=== PATIENT | female | born 1970 | race American Indian/Alaskan Native ===

== ENCOUNTER 2017-08-20 14:35 | Emergency (ER) | payer MEDICAID ==
[2017-08-20 15:37] VITALS: BP 131/57
[2017-08-20 16:15] LABS: Bacteria,Urine 1+ /HPF (Negative); Bilirubin,Urine NEG (Negative); Blood,Urine LG (Negative); Color,Urine Yellow (Yellow); Mucus,Urine FEW /HPF; Nitrite,Urine NEG (Negative); Protein,Urine <15 mg/dL mg/dL (Negative); Urobilinogen,Urine < 2.0 mg/dL (<2.0)
== END 2017-08-21 07:11 | disposition left against medical advice (07) ==
LOC: ED 14:35
DX: N93.9 Abnormal uterine and vaginal bleeding, unspecified (principal); Z53.21 Procedure and treatment not carried out due to patient leaving prior to being seen by health care provider
CPT/HCPCS: 81001

== ENCOUNTER 2017-08-21 14:45 | Emergency (ER) | payer MEDICAID ==
[2017-08-21 17:24] LABS: Bilirubin,Urine NEG (Negative); Blood,Urine LG (Negative); Color,Urine Yellow (Yellow); Mucus,Urine 1+ /HPF; Nitrite,Urine NEG (Negative); Protein,Urine <15 mg/dL mg/dL (Negative); Urobilinogen,Urine < 2.0 mg/dL (<2.0)
[2017-08-21 17:28] LABS: HCG Qualitative,Urine Positive (Negative)
--- NOTE | 2017-08-21 19:41 | Ultrasound Report ---
FINAL REPORT PROCEDURE: US OB < = 14 WEEKS FETUS TECHNIQUE: Real-time transabdominal sonography of the uterus, placenta, amniotic fluid, adnexa, and fetus was performed with image documentation. Measurements were obtained to determine age/size. M-mode Doppler was used to document heartbeat. CPT 33851 HISTORY: + hcg, vag bleeding COMPARISON: No prior studies are available for comparison. FINDINGS: CRL: No embryonic pole Yolk Sac: Not seen Embryonic Cardiac Activity: No heart activity Gestational Sac: 3 millimeters consistent with 5 weeks 0 days Amniotic fluid: Normal. Cervix: Normal. Right Ovary: Surgically absent Left Ovary: 3.6 x 3.7 centimeters with normal flow. Indeterminate 1.1 centimeter cyst left ovary. 1.2 centimeter echogenic solid mass, indeterminate. Estimated delivery date: 04/23/2018 Uterus and adnexa: 7 centimeter uterus IMPRESSION: Empty gestational sac 5 weeks 0 days age. No embryonic pole or heart tones seen. Short-term followup is advised.
--- NOTE | 2017-08-21 19:45 | Ultrasound Report ---
FINAL REPORT PROCEDURE: US OB TRANSVAGINAL TECHNIQUE: Real-time transvaginal sonography of the uterus, placenta, amniotic fluid, adnexa, and fetus was performed with image documentation. Measurements were obtained to determine age/size. M-mode Doppler was used to document heartbeat. CPT 88698 HISTORY: + hcg, vag bleeding COMPARISON: No prior studies are available for comparison. FINDINGS: CRL: Not seen Yolk Sac: Not seen Embryonic Cardiac Activity: Not seen Gestational Sac: 3 millimeter gestational sac consistent with 5 week 0 day age Right Ovary: Absent Left Ovary: 3.6 x 3.7 centimeter normal flow. 1.1 centimeter cyst and 1.2 centimeter echogenic solid mass nonspecific indeterminate Estimated delivery date: 04/23/2018 Comment: Short-term followup is advised IMPRESSION: Empty gestational sac without embryonic or heart rate activity seen at this time Cystic and solid lesions left ovary indeterminate.. Followup is advised
[2017-08-21 19:55] LABS: Basophils # (Auto) 0.1 K/mm3 (0.0-0.1); Basophils % (Auto) 1.1 % (0.0-1.8); Eosinophils # (Auto) 0.2 K/mm3 (0.0-0.4); Eosinophils % (Auto) 2.9 % (0.0-4.3); Hematocrit 41.4 % (30.3-42.9); Hemoglobin 13.9 gm/dl (10.1-14.3); Lymphocytes # (Auto) 3.5 K/mm3 (1.2-5.4); Lymphocytes % (Auto) 42.9 % (13.4-35.0); Mean Corpuscular HGB Conc 34 % (30-34); Mean Corpuscular Hemoglobin 32 pg (28-32); Mean Corpuscular Volume 95 fl (79-97); Monocytes # (Auto) 0.6 K/mm3 (0.0-0.8); Monocytes % (Auto) 6.9 % (0.0-7.3); Red Blood Count 4.38 M/mm3 (3.65-5.03); Red Cell Distribution Width 14.6 % (13.2-15.2)
[2017-08-21 20:03] LABS: Platelet Count 305 K/mm3 (140-440)
--- NOTE | 2017-08-21 22:07 | Emergency Department Report ---
ED Female HPI - General Chief complaint: Vaginal Bleeding Stated complaint: VAGINAL BLEEDING Time Seen by Provider: 08/21/17 17:05 Source: patient Mode of arrival: Ambulatory Limitations: No Limitations - History of Present Illness Initial comments: This Nielsen is a 47-year-old female with a history of , with positive test from home. She has a rn testing appointment on . She is here because she started having some spotting yesterday not enough to fill a pad but when she wiped. She was here yesterday for the same spotting but eloped. She stated that the bleeding is worse today and thus she came back. She denies any kind other than mild pain or cramping. She is a . Patient has suffered from facial hair and chest here since she had puberty. MD Complaint: vaginal bleeding - Related Data Previous Rx's Medication Instructions Recorded Last Taken Type oxyCODONE /ACETAMINOPHEN [Percocet 1 tab PO Q6HR PRN #14 tablet 08/21/17 Unknown Rx 5/325] Allergies Allergy/AdvReac Type Severity Reaction Status Date / Time No Known Allergies Allergy Verified 08/21/17 15:02 ED Review of Systems ROS: Stated complaint: VAGINAL BLEEDING Other details as noted in HPI ED Past Medical Hx - Past Medical History Hx Asthma: Yes - Surgical History Additional Surgical History: ovary removed in 2007 - Social History Smoking Status: Current Every Day Smoker Substance Use Type: None - Medications Home Medications: Home Medications Medication Instructions Recorded Confirmed Last Taken Type oxyCODONE /ACETAMINOPHEN [Percocet 1 tab PO Q6HR PRN #14 tablet 08/21/17 Unknown Rx 5/325] ED Physical Exam - General Limitations: No Limitations General appearance: alert, in no apparent distress - Head Head exam: Present: atraumatic, other (fully shaved .) - Eye Eye exam: Present: normal appearance, EOMI - ENT ENT exam: Present: mucous membranes moist - Neck Neck exam: Present: normal inspection, full ROM - Respiratory Respiratory exam: Present: normal lung sounds bilaterally. Absent: respiratory distress, wheezes, rales - Cardiovascular Cardiovascular Exam: Present: regular rate, normal rhythm. Absent: systolic murmur, diastolic murmur, rubs, gallop - GI/Abdominal GI/Abdominal exam: Present: soft, normal bowel sounds - Rectal Rectal exam: Present: deferred - External exam: Present: normal external exam, other (SKIN tag in the right thigh ) Speculum exam: Present: vaginal bleeding, other (was not able to see her cervix was not reach by the speculum. But even with manual palpation cervix is very very small but smaller than would be expected) - Extremities Exam Extremities exam: Present: normal inspection, full ROM - Back Exam Back exam: Present: normal inspection, full ROM - Neurological Exam Neurological exam: Present: alert, oriented X3, CN II-XII intact - Psychiatric Psychiatric exam: Present: normal affect, normal mood - Skin Skin exam: Present: warm, dry, intact, normal color. Absent: rash ED Course Vital Signs 08/21/17 08/21/17 08/21/17 15:02 17:59 18:22 Temperature 98.2 F 98.4 F Pulse Rate 81 69 79 Respiratory 20 16 13 Rate Blood Pressure 140/92 145/83 Blood Pressure 145/83 [Right] O2 Sat by Pulse 99 100 Oximetry 08/21/17 08/21/17 08/21/17 18:30 18:46 19:00 Temperature Pulse Rate 67 70 87 Respiratory 13 13 14 Rate Blood Pressure 140/77 140/77 136/82 Blood Pressure [Right] O2 Sat by Pulse 100 100 100 Oximetry 08/21/17 08/21/17 19:05 20:00 Temperature 98.5 F Pulse Rate 76 Respiratory 13 Rate Blood Pressure 124/62 Blood Pressure 136/82 [Right] O2 Sat by Pulse 100 100 Oximetry ED Medical Decision Making - Lab Data Result diagrams: 08/21/17 16:25 - Radiology Data Radiology results: report reviewed, image reviewed (transvaginal ultrasound pelvic ultrasound: T gestational sac without embryonic or heart activity, 1.1 cm cystic and 1.2 cm solid mass in the left ovary, 5 weeks 0 days no pole. Follow-up is advised) - Medical Decision Making See that this is an inevitable . Patient is 7 weeks and the hormone level is less than 300. Also the ultrasound does not show a embryonic activity gestational sac was empty. Critical care attestation.: If time is entered above; I have spent that time in minutes in the direct care of this critically ill patient, excluding procedure time. ED Disposition Clinical Impression: Threatened miscarriage in early , Vaginal bleeding affecting early Disposition: -01 TO HOME OR SELFCARE Is pt being admited?: No Does the pt Need Aspirin: No Condition: Stable Instructions: Threatened Miscarriage (ED) Additional Instructions: Please follow up with her [facility] in 2 days. Please also have the beta hCG repeated in 2 days. If her hormone level doubles is fine. If your hormone levels continues to fall, this be a sign that this is an inevitable . If he began to experience severe abdominal pain severe vaginal bleeding or new symptoms please return to emergency department. Prescriptions: oxyCODONE /ACETAMINOPHEN [Percocet 5/325] 1 tab PO Q6HR PRN #14 tablet PRN Reason: Pain Referrals: PRIMARY CARE, [Primary Care Provider] - 3-5 Days TANIYA ELLIS MD [Staff Physician] - 3-5 Days Time of Disposition: 22:09
[2017-08-21 22:34] VITALS: BP 134/78
== END 2017-08-21 22:35 | disposition home or self-care (01) ==
LOC: ED 14:45
DX: O20.0 Threatened abortion (principal); Z3A.01 Less than 8 weeks gestation of pregnancy; J45.909 Unspecified asthma, uncomplicated; F17.200 Nicotine dependence, unspecified, uncomplicated
CPT/HCPCS: 36415; 76801; 76817; 81001; 81025; 84702; 85025; 86850; 86900; 86901; 87210; 87591